=== PATIENT | female | born 1960 | race African-American/Black ===

== ENCOUNTER 2016-12-19 08:01 | Emergency (ER) | payer OTHER ==
[~2016-12-19] VITALS: Ht 167.6 cm; Wt 90.7 kg
[2016-12-19 08:42] LABS: EOSINOPHIL (%) 2.1 % (0-5); EOSINOPHIL COUNT 0.2 K/uL (0-0.3); HEMATOCRIT 39.3 % (36.0-46.0); IMMATURE GRANULOCYTE (%) 0.2 % (0.0-0.7); INSTRUMENT ABS NEUTROPHIL CT 4.4 K/uL; LYMPHOCYTE COUNT 2.7 K/uL (1.0-2.8); MCH 24.1 PG (29.0-34.0); MCV 77.5 FL (83-99); MEAN PLAT.VOLUME 11.1 uM^3 (9.5-12.4); MONOCYTE (%) 7.9 % (3-12); MONOCYTE COUNT 0.6 K/uL (0-0.8); NEUTROPHIL (%) 55.5 % (45-76); NEUTROPHIL COUNT 4.4 K/uL (1.8-6.4); PLATELET COUNT 229 K/uL (156-360); RBC DIS.WIDTH-CV 12.5 % (11.8-14.6); RBC DIS.WIDTH-SD 34.9 % (39-53); RED BLOOD COUNT 5.07 M/uL (3.80-5.20)
[2016-12-19 08:53] LABS: CHLORIDE 106 mEq/L (99-109); POTASSIUM 3.8 mEq/L (3.7-5.4); SODIUM 143 mEq/L (136-147)
[2016-12-19 08:54] LABS: GLUCOSE 97 mg/dL (70-99)
[2016-12-19 08:56] LABS: ANION GAP 10 MEQ/L (2-14)
[2016-12-19 08:58] LABS: GFR ESTIMATE (CALCULATED) > 59 mL/min/
[2016-12-19 08:59] LABS: UREA NITROGEN (BUN) 9 mg/dL (9-23)
[2016-12-19] MEDS ORDERED: NORVASC5 MG PO (11:14)
[2016-12-19] MEDS ORDERED: PERCOCET 5/31 TABLET PO (11:14)
[2016-12-19 11:20] VITALS: BP 104/75
== END 2016-12-19 11:29 | disposition home or self-care (01) ==
LOC: EME 08:01
PROVIDERS: Emergency Medicine
DX: M54.41 Lumbago with sciatica, right side (principal); I10 Essential (primary) hypertension; Z87.891 Personal history of nicotine dependence
CPT/HCPCS: 80048; 81003; 85025; 99281; 99284